=== PATIENT | female | born 1940 | race Caucasian/White ===

== ENCOUNTER 2024-01-05 06:12 | Day surgery (SDC) | payer OTHER, SELFPAY ==
[2023-12-28 10:53] VITALS: BMI 21.7
[2023-12-28 11:19] LABS: % Basophils 1.1 % (0-2); % Eosinophils 7.9 % (0-6); % Immature Granulocytes 0.3 % (0-0.5); % Lymphocytes 26.5 % (20.5-51.1); % Monocytes 9.8 % (1.7-9.3); % Neutrophils 54.4 % (42.2-75.2); Absolute Basophils 0.1 10^3/uL (0-0.2); Absolute Eosinophils 0.5 10^3/uL (0-0.7); Absolute Lymphocytes 1.7 10^3/uL (1.2-3.4); Absolute Monocytes 0.6 10^3/uL (0.1-0.6); Absolute Neutrophils 3.5 10^3/uL (1.4-6.5); Hematocrit 45.4 % (37.0-47.0); Hemoglobin 15.3 g/dL (12.0-16.0); Mean Corp Hgb Conc. 33.7 g/dL (33.0-37.0); Mean Corpuscular Hgb 32.2 pg (27.0-31.0); Mean Corpuscular Volume 95.6 fL (81.0-99.0); Mean Platelet Volume 9.5 fL (7.4-10.4); Nucleated Red Blood Cells % 0 %; Platelet Count 267 10^3/uL (130-400); Red Blood Cell Count 4.75 10^6/uL (4.20-5.40); Red Cell Dist. Width 13.1 % (11.5-14.5); White Blood Cell Count 6.4 10^3/uL (4.8-10.8)
[2023-12-28 11:29] LABS: INR 1.39; PT 17.1 Sec (11.4-14.6)
[2023-12-28 11:43] LABS: ALT (SGPT) 28 U/L (0-35); AST (SGOT) 37 U/L (14-36); Albumin 4.5 g/dl (3.5-5.0); Alkaline Phosphatase 143 U/L (38-126); Blood Urea Nitrogen 29 mg/dl (7-17); Calcium 10.8 mg/dl (8.4-10.2); Carbon Dioxide 33 mmol/L (22-30); Chloride 98 mmol/L (98-107); Estimated Creatinine Clearance 38 ml/min; Glucose 67 mg/dl (70-99); Magnesium 1.8 mg/dl (1.6-2.3); Potassium 3.5 mmol/L (3.5-5.1); Sodium 141 mmol/L (135-145); Total Bilirubin 0.9 mg/dl (0.2-1.3); Total Protein 7.4 g/dl (6.3-8.2); eGFR 50.17
[2024-01-05] VITALS (12 sets, daily range): BP systolic 97–148; BP diastolic 63–98; BMI 21.0
[2024-01-05 09:08] LABS: ACT-LR - POC 290 Seconds (116-155)
[2024-01-05 09:29] LABS: ACT-LR - POC 316 Seconds (116-155)
[2024-01-05 09:50] LABS: ACT-LR - POC 372 Seconds (116-155)
--- NOTE | 2024-01-05 10:22 | ITS.CL.ABL ---
[employer] - Ablation
Ablation
Procedure Report:
ELECTROPHYSIOLOGY ABLATION STUDY
�
DATE:: January 05, 2024�����������������������������REFERRING: Dr. Bk Harden
�
INDICATION: Persistent supraventricular tachycardia in the form of atrial fibrillation.��Prior history of mitral valve repair and maze with Dr. Melara at [facility] in 2016. Recurrent atrial fibrillation on metoprolol therapy
�
HISTORY: See H and P.��As above
�
ANTIARRHYTHMIC DRUG: As above
�
PRE-PROCEDURE JULIO: No ANGEL LUIS thrombus on intracardiac ultrasound
�
PRESENTING RHYTHM: Atrial fibrillation
�
'TIME-OUT':��called and confirmed.
�
SEDATION/ANESTHESIA:��provided via the anesthesia department using general anesthesia (LMA).
�
INTRAVENOUS/ARTERIAL ACCESS:
Right femoral venous - 8Fr
Left femoral venous - 8 Fr, 6 Fr
[id number] suture to the right and left femoral venous access sites after procedure.
Ultrasound guidance for bilateral femoral vein access was utilized by me to obtain access with demonstration of normal anatomy
CHADS-VASC Score:
�
HAS-Bled Score
�
PROCEDURE:
1.��A decapolar CS catheter was placed within the CS for mapping and pacing.��This was also used as the reference catheter for the 3-D map. After transseptal puncture with the fair drive sheath and the RF system mapping of the left atrium in atrial
fibrillation and in sinus rhythm was performed. There was significant prior scar from the prior maze procedure in 2016. There was connection of the left superior pulmonary vein at the anterior ligament of Rafael portion. There was connection of
the right superior pulmonary vein at the septal aspects up to the ostium. There was connection of the septal aspects of the right inferior pulmonary vein. There was an island of heterogeneous tissue in the posterior wall outside the right veins
towards the right inferior and at the roof outside of the left superior. There is relatively normal voltage at the floor of the left atrium at baseline. As below we then proceeded to isolate the veins and target areas of substrate and left atrium.
�
2. The intracardiac ultrasound catheter was positioned in the RA to identify the FO for targeting of transseptal puncture, assist��in identification of the pulmonary vein ostia, monitoring pre and post ablation pulmonary vein flow velocities,
monitoring for 'bubble' formation during RF application as a sign of thermal injury,��and to monitor for pericardial effusion during mapping and ablation procedure.���Left atrial size, LV ejection fraction, and pulmonary vein flows were monitored
pre and post ablation procedure. The other valves were inspected and found to be free of significant regurgitation or stenosis.
�
3.��Half of the calculated heparin bolus was administered prior to the first transeptal puncture.��Transseptal puncture was performed to diagnose RA and LA pressure so that safety of LA mapping and ablation could be further assessed, and to access
the left atrium and pulmonary veins for mapping and ablation.��This entailed advancing an 18 Cymraes sheath and RF dilator apparatus was advanced into the superior vena cava and withdrawing both (monitoring intracardiac ultrasound, fluoroscopy and
tip pressure) with the tip oriented toward the atrial septum.��The fossa ovalis was engaged (indicated by sudden displacement of the sheath tip as well as tenting of the fossa seen on intracardiac ultrasound).��Left atrial access required a pass
with the Brockenbrough needle extended.��Left atrial catheter position was confirmed by pressure monitoring (RA mean pressure 4 mm Hg and LA mean presure 12 mm Hg), LA saturation (99%),��as well as fluoroscopy.��The sheath was advanced over the
dilator and positioned in the left atrium.��This procedure was repeated for the Agilis sheath.��The remainder of the calculated heparin bolus was administered and heparin was
infused to maintain ACT at 300 -350 seconds throughout the case.
�
4.��RA pacing was performed via the proximal decapolar poles and LA pacing was performed via the distal decapolr poles.
�
5. A quadrapolar catheter was first positioned at the His position for His Bundle recording which was tagged via the 3-D Navex sytem, and then passed to the RVA for RV pacing and recording.
�
6. The multipolar catheter and the femoral pulse catheter were placed in each of the LIPV, LSPV, RSPV and the RIPV.��
�
7.��Next, a 3-D map was created using Navex.���A 3-D reconstructed CT image was compared to the 3-D Navex map to assist in anatomic interpretation, mapping and ablation.��The CT image and the NavX image were fused.
�
8. Total of 48 lesions were given to the left superior pulmonary vein, right superior pulmonary vein, right inferior pulmonary vein, as well as the middle portion of the roof of the left atrium, the posterior wall outside the right pulmonary veins,
the floor of the left atrium approximately 1.5 cm below the inferior veins and the interatrial septum. There were short periods of atrial tachycardias which were self terminating and typically initiated by delivering lesions and then terminated by
subsequent lesions. We then performed dense mapping of the left atrium demonstrating isolation of all 4 pulmonary veins, and isolation of left atrial posterior wall from the roof down to the floor. The interatrial septum was also debulked with
electrical silence approximately 1 cm back from the anterior of the right pulmonary veins. No other triggers for atrial fibrillation were noted. In sinus rhythm prior to ablation we did note that the right superior pulmonary vein was having a PD
triggers with single APD's, couplets, and triplets with the signal inside the vein 283 ms preleft atrial activation. Post ablation no further APCs were seen with occasional ectopic atrial rhythm from 640 ms to 920 ms with a basic cycle length in
sinus rhythm of 1200 ms. HV interval of 62 ms was noted.
�
9. Normal sinus and AV skyler function noted.
�
TOTAL FLOURO TIME: 18.7 minutes 123 mGy
�
TOTAL RF DURATION: 0 minutes
�
REVERSAL OF HEPARIN: 40 mg of protamine, slow IV administration
�
COMPLICATIONS:
None
Intracardiac US shows no pericardial effusion post ablation.
�
SUMMARY:��
Complex left atrial mapping and ablation.
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 The patient had
triggers for APCs and couplets prior to ablation from the right superior pulmonary vein.
�
RECOMMENDATIONS:
1. Out of bed and ambulate in 4 hours
2. Resume anticoagulation
3.� Consider same-day discharge
4.��Continue 1 of coagulation and lower metoprolol to 25 mg twice daily
�
Copy to: Dr. Bk Harden
�
[2024-01-05] MEDS: LOPRESSOR 25 MG PO (10:46)
--- NOTE | 2024-01-05 14:51 | W.PN.UPDATE ---
Addendum entered and electronically signed by LAUREL Us 01/05/24 16:45:
Pt with minimal UOP, still feeling very dry in mouth, bladder scan for only 306cc, ok for d/c home, encourage PO intake tonight. If unable to void in next 6-8 hours, instructed her and daughter to go to nearest hospital. Pt/daughter agree with plan.
All questions answered.
Original Note:
Update Note
Progress Note Update
Pt seen post PFA. Bilat groin sites without ht/bleeding. OOB ambulating. Post EKG NSR 60s, no acute changes. Resume eliquis tonight at usual time tonight. Decrease metoprolol to 25mg BID. Followup with Dr. Harden as scheduled. Home today if groin
sites/tele remain stable.
== END 2024-01-05 17:10 | disposition home or self-care (01) ==
LOC: CATH 06:12
PROVIDERS: ATTENDING PHYSICIAN Internal Medicine Cardiovascular Disease; FAMILY PHYSICIAN Nurse Practitioner Family; OTHER PHYSICIAN Internal Medicine Cardiovascular Disease
DX: I48.0 Paroxysmal atrial fibrillation (principal); I12.9 Hypertensive chronic kidney disease with stage 1 through stage 4 chronic kidney disease, or unspecified chronic kidney disease; E78.5 Hyperlipidemia, unspecified; Z92.3 Personal history of irradiation; Z85.3 Personal history of malignant neoplasm of breast; I27.20 Pulmonary hypertension, unspecified; R91.8 Other nonspecific abnormal finding of lung field; N18.30 Chronic kidney disease, stage 3 unspecified; Z79.01 Long term (current) use of anticoagulants; Z79.899 Other long term (current) drug therapy; I34.0 Nonrheumatic mitral (valve) insufficiency
CPT/HCPCS: C1732; C1894; C1730; C1769; C1759; 36415; 80053; 83735; 85025; 85347; 85610; 86850; 86900; 86901; 93005; 93656; 93657; C1733; C1766; C1889; C1892